=== PATIENT | female | born 1990 | race Caucasian/White ===

== ENCOUNTER 2016-07-06 09:15 | Emergency (ER) | payer OTHER ==
[~2016-07-06] VITALS: Ht 165.1 cm; Wt 80.3 kg
[2016-07-06] MEDS ORDERED: LEVETIRACETAM (250 MG) 250 MG TABLET PO ONE ×2 (09:30→09:33)
[2016-07-06 10:20] VITALS: BP 131/67
== END 2016-07-06 10:20 | disposition home or self-care (01) ==
LOC: ER 09:18
DX: G40.909 Epilepsy, unspecified, not intractable, without status epilepticus (principal); E03.9 Hypothyroidism, unspecified
CPT/HCPCS: 84703-TC; A4606; Z7610